=== PATIENT | female | born 1970 | race Asian ===

== ENCOUNTER → 2018-09-15 | Outpatient (CLI) | payer OTHER ==
[2018-09-15 09:38] LABS: microscopic required? NO
[2018-09-15 09:46] LABS: urine erythrocyte NEGATIVE (NEGATIVE)
[2018-09-15 10:23] LABS: BASOPHIL % 0.8 % (0-2); PLATELET COUNT 256 x10^3mcL (130-400); RED CELL DISTRIBUTION WIDTH 13.8 % (11.5-14.5)
[2018-09-15 10:37] LABS: ALBUMIN 3.6 g/dL (3.4-5.0); ALKALINE PHOSPHATASE 63 U/L (46-116); ALT/SGPT 46 U/L (14-59); AST/SGOT 23 U/L (15-37); BILIRUBIN TOTAL 0.76 mg/dL (0.20-1.00); CALCIUM 8.4 mg/dL (8.5-10.1); CARBON DIOXIDE 28.8 mmol/L (21-32); CHLORIDE SERUM 100 mmol/L (98-107); CHOLESTEROL 160 mg/dL (<200); CHOLESTEROL/HDL RATIO 2.3; CREATININE SERUM 0.8 mg/dL (0.6-1.0); FREE T4 0.94 ng/dL (0.76-1.46); GFR1 > 60 mL/min; GLUCOSE SERUM 148 mg/dL (74-106); HDL CHOLESTEROL 70 mg/dL (40-60); POTASSIUM SERUM 3.8 mmol/L (3.5-5.1); SODIUM SERUM 136 mmol/L (136-145); TOTAL PROTEIN, SERUM 7.5 g/dL (6.4-8.2); TRIGLYCERIDES 100 mg/dL (<150)
== END | disposition home or self-care (01) ==
LOC: MA 08:44
PROVIDERS: Family Medicine Geriatric Medicine
PROC: BH02ZZZ Plain Radiography of Bilateral Breasts (ICD-10-PCS; principal; 2018-09-15)
DX: Z12.31 Encounter for screening mammogram for malignant neoplasm of breast (principal); Z86.19 Personal history of other infectious and parasitic diseases; Z13.29 Encounter for screening for other suspected endocrine disorder; Z13.228 Encounter for screening for other metabolic disorders; Z13.21 Encounter for screening for nutritional disorder; Z83.3 Family history of diabetes mellitus; Z13.0 Encounter for screening for diseases of the blood and blood-forming organs and certain disorders involving the immune mechanism; Z13.220 Encounter for screening for lipoid disorders
CPT/HCPCS: 77067; 82652; 84439

== ENCOUNTER 2019-05-09 06:50 | Day surgery (SDC) | payer OTHER ==
[2019-05-07 10:54] LABS: BASOPHIL % 0.7 % (0-2); PLATELET COUNT 293 x10^3mcL (130-400); RED CELL DISTRIBUTION WIDTH 13.5 % (11.5-14.5)
[2019-05-07 11:01] LABS: CALCIUM 8.8 mg/dL (8.5-10.1); CARBON DIOXIDE 29.1 mmol/L (21-32); CHLORIDE SERUM 101 mmol/L (98-107); CREATININE SERUM 0.8 mg/dL (0.6-1.0); GFR1 > 60 mL/min; GLUCOSE SERUM 169 mg/dL (74-106); POTASSIUM SERUM 4.1 mmol/L (3.5-5.1); SODIUM SERUM 140 mmol/L (136-145)
[~2019-05-09] VITALS: Ht 165.1 cm; Wt 108.9 kg
[2019-05-09 07:31] VITALS: BP 135/67
[2019-05-09 11:45] VITALS: BP 129/76
== END 2019-05-09 11:30 | disposition home or self-care (01) ==
LOC: DS 06:50 → OR 09:30 → DS 09:30
PROVIDERS: Obstetrics & Gynecology
DX: C54.1 Malignant neoplasm of endometrium (principal); N73.6 Female pelvic peritoneal adhesions (postinfective); E11.9 Type 2 diabetes mellitus without complications; F41.9 Anxiety disorder, unspecified; E66.8 Other obesity; D64.9 Anemia, unspecified; Z79.84 Long term (current) use of oral hypoglycemic drugs; Z79.899 Other long term (current) drug therapy; Z86.19 Personal history of other infectious and parasitic diseases; Z98.890 Other specified postprocedural states; Z68.41 Body mass index [BMI] 40.0-44.9, adult
CPT/HCPCS: 88344; C1758; J2250; J2405; J2704; J3010; J7030

== ENCOUNTER → 2019-09-08 | Outpatient (CLI) | payer OTHER ==
[2019-09-09 08:07] LABS: microalbumin:creatinine ratio 8.4 (0.0-30.0)
== END | disposition home or self-care (01) ==
LOC: LB 10:18
DX: E11.9 Type 2 diabetes mellitus without complications (principal)

== ENCOUNTER → 2019-11-02 | Outpatient (CLI) | payer OTHER | END | disposition home or self-care (01) | LOC: MA 09:00 | PROC: BH02ZZZ Plain Radiography of Bilateral Breasts (ICD-10-PCS; principal; 2019-11-02) | DX: Z12.39 Encounter for other screening for malignant neoplasm of breast (principal); Z12.31 Encounter for screening mammogram for malignant neoplasm of breast | CPT/HCPCS: 77067 ==

== ENCOUNTER → 2020-04-18 | Outpatient (CLI) | payer OTHER ==
[2020-04-18 12:13] LABS: CALCIUM 8.9 mg/dL (8.5-10.1); CHLORIDE SERUM 101 mmol/L (98-107); CREATININE SERUM 0.8 mg/dL (0.6-1.0); GFR1 > 60 mL/min; GLUCOSE SERUM 126 mg/dL (74-106); POTASSIUM SERUM 4.6 mmol/L (3.5-5.1); SODIUM SERUM 140 mmol/L (136-145)
== END | disposition home or self-care (01) ==
LOC: LB 10:29
DX: E11.9 Type 2 diabetes mellitus without complications (principal)

== ENCOUNTER → 2020-04-30 | Outpatient (CLI) | payer OTHER | END | disposition home or self-care (01) | LOC: CT 09:43 | PROC: BW251ZZ Computerized Tomography (CT Scan) of Chest, Abdomen and Pelvis using Low Osmolar Contrast (ICD-10-PCS; principal; 2020-04-30) | DX: C54.1 Malignant neoplasm of endometrium (principal) | CPT/HCPCS: Q9967 ==

== ENCOUNTER → 2020-11-28 | Outpatient (CLI) | payer OTHER ==
[2020-11-28 09:37] LABS: microscopic required? NO
[2020-11-28 09:42] LABS: PLATELET COUNT 254 x10^3mcL (179-408); RED CELL DISTRIBUTION WIDTH 13.6 % (12.3-17.7)
[2020-11-28 09:56] LABS: BASOPHIL % 2.9 % (0.2-1.3)
[2020-11-28 10:06] LABS: urine erythrocyte NEGATIVE (NEGATIVE)
[2020-11-28 10:31] LABS: ALBUMIN 3.8 g/dL (3.4-5.0); ALKALINE PHOSPHATASE 69 U/L (46-116); ALT/SGPT 50 U/L (14-59); AST/SGOT 30 U/L (15-37); BILIRUBIN TOTAL 0.8 mg/dL (0.20-1.00); CALCIUM 9.1 mg/dL (8.5-10.1); CARBON DIOXIDE 30.4 mmol/L (21-32); CHLORIDE SERUM 99 mmol/L (98-107); CHOLESTEROL 144 mg/dL (<200); CREATININE SERUM 0.7 mg/dL (0.6-1.0); FREE T4 1.06 ng/dL (0.76-1.46); GFR1 > 60 mL/min; GLUCOSE SERUM 132 mg/dL (74-106); POTASSIUM SERUM 3.9 mmol/L (3.5-5.1); SODIUM SERUM 135 mmol/L (136-145); TOTAL PROTEIN, SERUM 7.5 g/dL (6.4-8.2); TRIGLYCERIDES 109 mg/dL (<150)
[2020-11-28 10:54] LABS: CHOLESTEROL/HDL RATIO 1.8; HDL CHOLESTEROL 81 mg/dL (40-60)
[2020-11-29 13:06] LABS: microalbumin:creatinine ratio 7 (0-29)
[2020-11-30 10:05] LABS: VITAMIN D 1,25 DIHYDROXY 41.3 pg/mL (19.9-79.3)
== END | disposition home or self-care (01) ==
LOC: MA 09:11
PROC: BH02ZZZ Plain Radiography of Bilateral Breasts (ICD-10-PCS; principal; 2020-11-28)
DX: E11.9 Type 2 diabetes mellitus without complications (principal); E83.51 Hypocalcemia; Z12.31 Encounter for screening mammogram for malignant neoplasm of breast; Z13.29 Encounter for screening for other suspected endocrine disorder; Z86.39 Personal history of other endocrine, nutritional and metabolic disease
CPT/HCPCS: 77067; 82652; 84439